=== PATIENT | female | born 1975 ===

== ENCOUNTER 2016-06-16 12:39 | Emergency (ER) | payer BC ==
[2016-06-16] MEDS ORDERED: Aspirin Low Dose CHEW TAB* 81 MG PO ONE (13:11)
[2016-06-16 13:46] LABS: Hematocrit 42 % (35-47); Hemoglobin 13.7 g/dl (12.0-16.0); Mean Corpuscular HGB Conc 33 g/dl (31-36); Mean Corpuscular Hemoglobin 28 pg (27-31); Mean Corpuscular Volume 84 fL (80-97); Mean Platelet Volume 10 um3 (7.4-10.4); Red Blood Count 4.96 10^6/ul (4.0-5.4); Red Cell Distribution Width 13 % (10.5-15); White Blood Count 11.8 10^3/ul (3.5-10.8)
--- NOTE | 2016-06-16 13:47 | RAD ---
HISTORY: Chest pain COMPARISONS: None VIEWS:1: Single frontal portable view of the chest at 1:27 PM FINDINGS: LINES AND TUBES: None. CARDIOMEDIASTINAL SILHOUETTE: The cardiomediastinal silhouette is normal for portable technique. PLEURA: The costophrenic angles are sharp. No pleural abnormalities are noted. LUNG PARENCHYMA: The lungs are clear. ABDOMEN: The upper abdomen is clear. There is no subphrenic gas. BONES AND SOFT TISSUES: No bone or soft tissue abnormalities are noted. IMPRESSION: NO ACTIVE CARDIOPULMONARY DISEASE.
[2016-06-16] MEDS ORDERED: Ibuprofen TAB* 600 MG PO ONE (13:50)
[2016-06-16 13:59] LABS: Albumin 4.3 g/dL (3.2-5.2); Calcium 9.5 mg/dL (8.6-10.3); EGFR African American 129.8 (>60); Potassium 3.8 mmol/L (3.5-5.0); Total Bilirubin 0.4 mg/dL (0.2-1.0); Total Protein 7.3 g/dL (6.4-8.9)
[2016-06-16 14:06] LABS: TSH (Thyroid Stimulating Horm) 3.28 mcIU/mL (0.34-5.60)
--- NOTE | 2016-06-16 15:07 | ED ---
heraclio Garcia Timothy, scribed for Nic Hedrick MD on 06/16/16 at 1321 . HPI Chest Pain - HPI Summary HPI Summary: Efe Valencia is a 41 yo female presenting to [facility] with atypical 5/10 CP since 06/14/16. Pt states the pressure has persisted and gotten worse, and now radiates into the left shoulder and causes SOB. Initially, the pressure felt sharp. She states the pain is worse with exertion. She denies any Hx of CAD. She saw her PCP who gave her an EKG to r/o [place], and then recommended she present to [facility]. She denies N/V, lightheadedness, and diaphoresis. Her pain/dyspnea is worse with exertion. She denies any other Sx, as well as PMHx. - History of Current Complaint Chief Complaint: EDChestPainROMI Time Seen by Provider: 06/16/16 13:10 Hx Obtained From: Patient Onset/Duration: Started Days Ago, Still Present, Worse Since - now Timing: Constant Initial Severity: Moderate Current Severity: Moderate Pain Intensity: 5 Pain Scale Used: 0-10 Numeric Chest Pain Radiates: Yes Chest Pain Radiates To:: Shoulder - left Character: Exertion, Pressure/Squeezing, Sharp/Stabbing Aggravating Factor(s): Exertion Alleviating Factor(s): Nothing Associated Signs and Symptoms: Positive: Chest Pain, Shortness of Breath - Allergy/Home Medications Allergies/Adverse Reactions: Allergies Allergy/AdvReac Type Severity Reaction Status Date / Time Penicillins Allergy Rash And Verified 06/16/16 13:22 Itching PMH/Surg Hx/FS Hx/Imm Hx Infectious Disease History: No Infectious Disease History: Denies: Traveled Outside the [place] in Last 30 Days - Family History Known Family History: Negative: Cardiac Disease, Hypertension, Diabetes - Social History Alcohol Use: None Substance Use Type: Reports: None Smoking Status (MU): Never Smoked Tobacco Review of Systems Constitutional: Negative Eyes: Negative ENT: Negative Positive: Chest Pain Positive: Shortness Of Breath Gastrointestinal: Negative Genitourinary: Negative Musculoskeletal: Other - pain in left shoulder Skin: Negative Neurological: Negative Psychological: Normal All Other Systems Reviewed And Are Negative: Yes Physical Exam - Summary Physical Exam Summary: VITAL SIGNS: Reviewed. GENERAL: Patient is a well developed and nourished female who is lying comfortable in the stretcher. Patient is not in any acute respiratory distress. HEAD AND FACE: No signs of trauma. No ecchymosis, hematomas or skull depressions. No sinus tenderness. EYES: PERRLA, EOMI x 2, No injected conjunctiva, no nystagmus. EARS: Hearing grossly intact. Ear canals and tympanic membranes are within normal limits. MOUTH: Oropharynx within normal limits. NECK: Supple, trachea is midline, no adenopathy, no JVD, no carotid bruit, no c- spine tenderness, neck with full ROM. CHEST: Symmetric, positive reproduction of tenderness at palpation LUNGS: Clear to auscultation bilaterally. No wheezing or crackles. CVS: Regular rate and rhythm, S1 and S2 present, no murmurs or gallops appreciated. ABDOMEN: Soft, non-tender. No signs of distention. No rebound no guarding, and no masses palpated. Bowel sounds are normal. EXTREMITIES: FROM in all major joints, no edema, no cyanosis or clubbing. NEURO: Alert and oriented x 3. No acute neurological deficits. Speech is normal and follows commands. SKIN: Dry and warm Triage Information Reviewed: Yes Vital Signs On Initial Exam: Initial Vitals Temp Pulse Resp BP Pulse Ox 98.0 F 77 20 94/72 100 06/16/16 12:42 06/16/16 12:42 06/16/16 12:42 06/16/16 12:42 06/16/16 12:42 Vital Signs Reviewed: Yes - [place] Coma Scale Coma Scale Total: 15 Diagnostics - Vital Signs Vital Signs Temp Pulse Resp BP Pulse Ox 06/16/16 13:00 69 16 93 06/16/16 12:55 73 100 06/16/16 12:53 104/57 06/16/16 12:42 98.0 F 77 20 94/72 100 - Laboratory Lab Results: Lab Results 06/16/16 06/16/16 06/16/16 Range/Units 13:30 13:30 13:30 WBC 11.8 H (3.5-10.8) 10^3/ul RBC 4.96 (4.0-5.4) 10^6/ul Hgb 13.7 (12.0-16.0) g/dl Hct 42 (35-47) % MCV 84 (80-97) fL MCH 28 (27-31) pg MCHC 33 (31-36) g/dl RDW 13 (10.5-15) % Plt Count 274 (150-450) 10^3/ul MPV 10 (7.4-10.4) um3 Neut % (Auto) 73.0 (38-83) % Lymph % (Auto) 19.2 L (25-47) % Merrick % (Auto) 4.5 (1-9) % Eos % (Auto) 2.3 (0-6) % Baso % (Auto) 1.0 (0-2) % Absolute Neuts (auto) 8.6 H (1.5-7.7) 10^3/ul Absolute Lymphs (auto) 2.3 (1.0-4.8) 10^3/ul Absolute Monos (auto) 0.5 (0-0.8) 10^3/ul Absolute Eos (auto) 0.3 (0-0.6) 10^3/ul Absolute Basos (auto) 0.1 (0-0.2) 10^3/ul Absolute Nucleated RBC 0.01 10^3/ul Nucleated RBC % 0.1 Sodium 135 (133-145) mmol/L Potassium 3.8 (3.5-5.0) mmol/L Chloride 103 (101-111) mmol/L Carbon Dioxide 26 (22-32) mmol/L Anion Gap 6 (2-11) mmol/L BUN 13 (6-24) mg/dL Creatinine 0.65 (0.51-0.95) mg/dL Est GFR ( Amer) 129.8 (>60) Est GFR (Non-Af Amer) 101.0 (>60) BUN/Creatinine Ratio 20.0 (8-20) Glucose 86 (70-100) mg/dL Lactic Acid 0.8 (0.5-2.0) mmol/L Calcium 9.5 (8.6-10.3) mg/dL Total Bilirubin 0.40 (0.2-1.0) mg/dL AST 12 L (13-39) U/L ALT 10 (7-52) U/L Alkaline Phosphatase 48 (34-104) U/L Total Creatine Kinase 43 (10-223) U/L CK-MB (CK-2) 1.5 (0.6-6.3) ng/mL Troponin I 0.00 (<0.04) ng/mL Total Protein 7.3 (6.4-8.9) g/dL Albumin 4.3 (3.2-5.2) g/dL Globulin 3.0 (2-4) g/dL Albumin/Globulin Ratio 1.4 (1-3) TSH Pending Result Diagrams: 06/16/16 13:30 06/16/16 13:30 Lab Statement: Any lab studies that have been ordered have been reviewed, and results considered in the medical decision making process. - Radiology CXR Xray Interpretation: No Acute Changes - IMPRESSION: NO ACTIVE CARDIOPULMONARY DISEASE. Radiology Interpretation Completed By: Radiologist - EKG 1251 Cardiac Rate: NL - 64 BPM EKG Interpretation: NSR @ 64 BPM, no ST elevations Chest Pain Course/Dx - Course Assessment/Plan: Efe Valencia is a 41 yo female presenting to [facility] with atypical 5/10 CP since 06/14/16. Pt states the pressure has persisted and gotten worse, and now radiates into the left shoulder and causes SOB. Initially, the pressure felt sharp. She states the pain is worse with exertion. She denies any Hx of CAD. She saw her PCP who gave her an EKG to r/o [place], and then recommended she present to [facility]. She denies N/V, lightheadedness, and diaphoresis. Her pain /dyspnea is worse with exertion. She denies any other Sx, as well as PMHx. Blood work wnl except for WBC of 11.2. CXR impression: No acute cardiopulmonary pathology. Initially patient was given an IV access but the patient felt uncomfortable and she requested to remove it. She did not want any medication parenterally. She was given Ibuprofen 600 mg PO. Since all blood work is negative, pain is reproducible and she is not tachycardic or hypoxic I have no suspicion for PE or ACS. I discussed all the findings and test results with the patient. Patient was instructed to return to the emergency room immediately if any of the symptoms return or worsens. Plan of care was discussed with the patient and understands and agrees. All questions were answered at patient satisfaction. There were no further complaints or concerns. Lung exam before discharge: CTA B/L. Good air exchange. No wheezing or crackles heard. CVS: S1 and S2 present. No murmurs appreciated. Patient is alert and oriented x 3. Patient is hemodynamically stable. 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 Return to the emergency department with any new or recurring symptoms. The documentation as recorded by the heraclio killian Timothy accurately reflects the service I personally performed and the decisions made by , Nic Hedrick MD.
[2016-06-16 15:12] VITALS: BP 101/56
== END 2016-06-16 15:12 | disposition home or self-care (01) ==
LOC: ED 12:39
DX: R07.89 Other chest pain (principal); R06.02 Shortness of breath; Z88.0 Allergy status to penicillin
CPT/HCPCS: 36415; 71010; 80053; 82550; 82553; 83605; 83880; 84443; 84484; 85025; 85379; 93005; 99282; A9270-GY